=== PATIENT | female | born 1965 | race Caucasian/White ===

== ENCOUNTER → 2017-11-21 | Day surgery (SDC) | payer OTHER ==
[~2017-11-21] VITALS: Ht 162.6 cm; Wt 82.0 kg
[~2017-11-21] MED LIST: BACITRACIN TOP OINT 15 GM TUBE ONE; BUPIVACAINE/EPINEPHRINE 0.25% 50 ML VIAL ONE; BUPIVACAINE/EPINEPHRINE 0.5% PF 30 ML VIAL ONE; CHLORHEXIDINE GLUCONATE 2 % 1 PACK (2 CLOTHS) TOPICAL PRN; GENTAMICIN SULFATE 80 MG/2 ML VIAL ONE; IBUP1TAB7 PO; LACTATED RINGER'S 1000 ML IV PRN; METOPROLOL TARTRATE 25 MG TAB PO PRN; OXYC1TAB63 PO; POVIDONE IODINE 5% (ANTISEPSIS KIT) 4 APPLICATIONS EACH NARE PRN; SODIUM CHLORID 0.9% 500 ML IV PRN; ceFAZolin 1,000 MG/NS 100 ML IV SCH
[2017-11-21 15:20] VITALS: BP 161/86; PULSE 91; RESP 16; TEMP 98.2; O2SAT 97
--- NOTE | 2017-11-23 18:35 | PD.OP ---
Operative Report Date of Surgery: Nov 21, 2017 Preoperative Diagnosis: (1) Fracture of right distal radius Postoperative Diagnosis: (1) Fracture of right distal radius Procedure: Open reduction internal fixation of right distal radius fracture (32337) Surgeon: Kenyon Stacy Claim Adjuster(s): . Operation and Findings: This is a 51-year-old female who presented with a right distal radius fracture after ground-level fall. Risks benefits and alternative treatments were discussed. All questions were answered and the patient expressed understanding. The patient elected to assume the risks of open reduction internal fixation of the fracture. Informed consent was obtained. Surgical site was marked in the preoperative holding bay. Antibiotics were given on-call to the operating room. After the patient was taken to the operating room, all pressure points were padded. A surgical timeout was performed. After the smooth induction of general anesthesia the surgical site was instilled with half percent Marcaine with epinephrine. The surgical site was prepped and draped in the usual sterile fashion. The upper extremity was exsanguinated using an Esmarch bandage and an appropriately padded tourniquet was inflated to 250 mmHg. A volar longitudinal incision was made over the distal flexor carpi radialis. Blunt dissection was carried down to the flexor carpi radialis which was were retracted ulnarly. This exposed the FCR sub- sheath which was sharply incised. The underlying flexor pollicis longus was similarly bluntly dissected and retracted ulnarly. Using blunt dissection the pronator quadratus was encountered. The pronator quadratus was incised. The periosteal elevator was used to raise the pronator quadratus, pedicled ulnarly off of the distal ulnar radius. The periosteal elevator was then used to separate the radial insertions of the brachioradialis. The distal fracture fragment was significantly dorsally angulated and displaced. After mobilizing the fracture fragments and distracting the fracture, the fracture was reduced. A 0.045 K wire was then placed into the radial styloid securing the fracture in the reduced position. A Synthes volar distal radius plate was selected and fixed to the distal fracture fragment using 0.045 K wires. Mini C-arm was brought in to confirm placement of the plate proximal to the watershed line and joint line as well as placement of the plate centrally on the radial shaft. Following screw fixation all lengths and positions were confirmed using mini C arm. The radial inclination and volar tilt had been restored. The pronator quadratus was repaired using a running 4-0 Vicryl giving excellent plate coverage. Surgical site was copiously irrigated with antibiotic irrigation. The dermis was reapproximated with interrupted 3-0 Vicryls followed by interrupted 4-0 nylons in a horizontal running fashion. The surgical site was cleaned. The incision was dressed with mupirocin ointment, Xeroform gauze, 4 x 4 gauze fluffs, and an appropriately padded volar splint. The tourniquet was released at 131 minutes. All digits pinked up nicely. The patient was awoken from anesthesia and arrived stable and doing well to the PACU. All needle sponge and instrument counts were correct 2. Kenyon Stacy MD November 23, 2017 18:35
== END | disposition home or self-care (01) ==
LOC: PHSDC 08:14
PROVIDERS: ATTEND Student in an Organized Health Care Education/Training Program
DX: S52.501A Unspecified fracture of the lower end of right radius, initial encounter for closed fracture (principal); W19.XXXA Unspecified fall, initial encounter
CPT/HCPCS: 76000; C1713; J0690; J1580; J3010; J7120